=== PATIENT | female | born 1965 | race African-American/Black ===

== ENCOUNTER 2016-03-31 11:12 | Emergency (ER) | payer OTHER ==
[~2016-03-31] VITALS: Ht 154.9 cm; Wt 65.9 kg
[~2016-03-31 11:12] MED LIST: ALBU6.7H IH
[2016-03-31] MEDS ORDERED: ACETAMINOPHEN 325 MG TABLET PO ONE (12:15)
[2016-03-31] MEDS ORDERED: GuaiFENesin/D-METHORPHAN [SUGAR-FREE] 200-20MG/10 ML SYRUP UDCUP PO ONE (12:15)
[2016-03-31 12:47] LABS: INFLUENZA TYPE B NEGATIVE FOR TYPE B (NEGATIVE)
[2016-03-31 14:46] VITALS: BP 134/67
[2016-03-31] MEDS ORDERED: IPRATROPIUM BROMIDE 0.5 MG/2.5 ML NEB SOLUTION NEB ONE (14:47)
[2016-03-31] MEDS ORDERED: ALBUTEROL SULFATE 2.5 MG/0.5 ML NEB SOLUTION NEB ONE (14:47)
== END 2016-03-31 15:09 | disposition home or self-care (01) ==
LOC: EMS 11:12
DX: J06.9 Acute upper respiratory infection, unspecified (principal); J45.909 Unspecified asthma, uncomplicated; Z87.891 Personal history of nicotine dependence
CPT/HCPCS: 71010; 87804; 99285; J7613

== ENCOUNTER 2016-10-23 12:32 | Emergency (ER) | payer OTHER ==
[~2016-10-23] VITALS: Ht 154.9 cm; Wt 68.2 kg
[2016-10-23] MEDS ORDERED: PRED5 PO (12:35)
[2016-10-23] MEDS ORDERED: ALBUTEROL SULFATE 2.5 MG/0.5 ML NEB SOLUTION NEB ONE (13:15)
[2016-10-23] MEDS ORDERED: 0.9% SODIUM CHLORIDE 5 ML NEB SOLUTION NEB ONE (13:42)
[2016-10-23] MEDS ORDERED: CefTRIAXone SODIUM 1 GM/VIAL IM ONE (14:15)
[2016-10-23] MEDS ORDERED: LIDOCAINE HCL/PF 1% 2 ML VIAL IM ONE (14:15)
[2016-10-23] MEDS ORDERED: ACETAMINOPHEN/CODEINE 300-30 MG TABLET PO ONE (14:30)
[2016-10-23] MEDS ORDERED: DEXAMETHASONE SOD PHOS 4 MG/ML 5 ML VIAL IM ONE (14:30)
[2016-10-23 15:43] VITALS: BP 132/101
== END 2016-10-23 15:44 | disposition home or self-care (01) ==
LOC: EMS 12:38
DX: J40 Bronchitis, not specified as acute or chronic (principal); J06.9 Acute upper respiratory infection, unspecified; J45.909 Unspecified asthma, uncomplicated; Z87.891 Personal history of nicotine dependence
CPT/HCPCS: 94640; 96372; 99284; J0696; J1100; J3490; J7613

== ENCOUNTER 2018-01-30 11:41 | Emergency (ER) | payer OTHER ==
[~2018-01-30] VITALS: Ht 157.5 cm; Wt 65.9 kg
[~2018-01-30 11:41] MED LIST changes: +PRED5 PO
[2018-01-30] MEDS ORDERED: IPRATROPIUM BROMIDE 0.5 MG/2.5 ML NEB SOLUTION NEB ONE (15:00)
[2018-01-30] MEDS ORDERED: ALBUTEROL SULFATE 2.5 MG/0.5 ML NEB SOLUTION NEB ONE (15:00)
[2018-01-30] MEDS ORDERED: ALBUTEROL SULFATE HFA 90 MCG/PUFF 8 GM INHALER IH ONE (15:00)
[2018-01-30 15:56] VITALS: BP 134/79
== END 2018-01-30 16:02 | disposition home or self-care (01) ==
LOC: EMS 11:45
DX: R05 Cough (principal); R06.02 Shortness of breath; R68.83 Chills (without fever); J45.909 Unspecified asthma, uncomplicated; Z87.891 Personal history of nicotine dependence
CPT/HCPCS: 94640; J3535